=== PATIENT | male | born 1980 | race Caucasian/White ===

== ENCOUNTER 2017-01-31 12:46 | Day surgery (SDC) | payer SELFPAY ==
[~2017-01-31] VITALS: Ht 175.3 cm; Wt 77.5 kg
[2017-01-31] VITALS (16 sets, daily range): BP systolic 119–169; BP diastolic 67–100; PULSE 55–88; RESP 12–19; O2SAT 94–100
[~2017-01-31 12:46] MED LIST: CeFAZolin 2 Gm/50 mL D5W IV Premix IV ONE; Lactated Ringer's 500 ML IV SCH; OXYC1TAB24 PO
[2017-01-31] MEDS ORDERED: Dexamethasone 4 mg/mL Inj ONE (12:47)
[2017-01-31] MEDS ORDERED: Propofol 10,000 mCg/mL 20 mL Inj ONE (12:47)
[2017-01-31] MEDS ORDERED: fentaNYL-PF 50 mCg/mL 2 mL Inj ONE (12:47)
[2017-01-31] MEDS ORDERED: Ondansetron 2 mg/mL 2 mL Inj ONE (12:47)
[2017-01-31] MEDS: Lactated Ringer's 1,000 ML IV SCH ×5 (12:55→17:58)
[2017-01-31] MEDS ORDERED: CeFAZolin Inj 2 gm / 50mL D5W IV ONE (13:09)
[2017-01-31] MEDS ORDERED: ROB500 PO (13:16)
--- NOTE | 2017-01-31 13:53 | PCM.HPANE ---
Patient Data Date of Service: Jan 31, 2017 Surgeon Admitting Provider: Attending Provider:Niels Rivera DO Primary Care Physician:Shon Other Provider:Augustin Valera Anesthesia Reason for Visit Parveen Fx Of Left Ulna Ht/WT & BMI Height (Feet): 5 Height (Inches): 9 Weight (Kilograms): 77.5 Body Mass Index 25.00 Allergies Coded Allergies: No Known Allergies (Unverified , 01/31/17) Past Anesthesia History Anesthesia History: Denies:: Abnormal Airway, Anesthesia Reactions ( hallucinations with ketamine with ED), Difficult Intubation, Fam Anesthesia Reaction Diabetes History Hx Diabetes?: No MRSA MRSA: No Medications Hypertension Medication: No Home Meds Incl Beta Olya: No Reported Medications Methocarbamol Unknown Strength TabletUnknown Dose PO 01/31/17 oxyCODONE-Acetaminophen 5-325 mg 1 Each Tablet1 Tab PO Q6H PRN For Pain Ref 0 01/29/17 History History of ENT Problems?: No HEENT History: Denies:: Abnormal Airway Cataracts Difficult Intubation Dysphagia Glaucoma Hearing Problem Sinus Problem TMJ Denture Type: None Teeth Condition: Tooth Decay Missing Teeth Hx of Heart Problems?: No Cardiovascular History: Denies:: AICD Abdominal Aortic Aneurism Atrial Fibrillation Cardiac Surgery Edema Heart Murmur Hypertension Irregular Heartbeat Pacemaker Peripheral Vascular Hx of Respiratory Problem?: No Respiratory History: Denies:: Asthma COPD Emphysema Oxygen Administration Pneumonia Tuberculosis Use of C-PAP Machine Use of Inhalers / NEBS Other Resp Pertinent History: 1/2 ppd smoker Hx Neurologic Problems?: No Neurological History: Denies:: CVA Headaches Multiple Sclerosis Parkinson's Disease Seizures TIA Hx of GI Problems?: No Hx of Problems?: No Genitourinary History: Denies:: Kidney Stones Urinary Tract Infection Male Hx: Denies:: Prostate Problems Skin History: Denies:: History Skin Disorders? 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 Denies:: Blood Transfusions Hx Diabetes: No Hx Alcohol Use: YesAlcoholic Drinks Per Day: couple of drinksHx Substance Use : Yes (marijuana- inhale daily) Smoking Status: Current Every Day Smoker Have You Smoked inLast 12 mo: Yes (half pack daily) Stop/Bang Treated for Sleep Apnea?: No Do You Have a CPAP Machine?: No S-Snoring: Do You Snore Loudly: No T-Tired: feel tired, fatigued: No O-Obsered: Observed not breath: No P-Blood Pressure: treated: No B- Body Mass Index > 35 kg/m2: No A- Age over 50: No N- Neck Large Circumference: No G- Gender Male: Yes RA Total Score: 1 RA Risk Assessment: Low Risk, <3 Yes Risk Assessment Category Category 1A: Patient has history of documented sleep apnea, and HAS NOT received any narcotic, sedative or anesthesia administration during this stay. Category 1B: Patient has history of documented sleep apnea, and HAS received any narcotic , sedative or anesthesia administration during this stay Category 2: Patient has SUSPECTED Obstructive Sleep Apnea, and HAS received any narcotic , sedative or anesthesia administration during this stay. Category 3: Patient has SUSPECTED Obstructive Sleep Apnea and HAS NOT received narcotic, sedative or anesthesia administration during this stay. Category 4: Outpatient in Procedural Areas with known sleep apnea or who screen positive for High Risk via the STOP/BANG questionnaire. Exam Exam Vital Signs Vital Signs Date Time Temp Pulse Resp B/P Pulse Ox O2 Delivery O2 Flow Rate FiO2 01/31/17 13:17 36.1 55 16 119/67 97 Room Air General Appearance: Alert, Oriented X3, Cooperative, No Acute Distress HEENT/AIRWAY: MP 2 Lungs: Clear to Auscultation Heart: Regular Rate/Rhythm, No Murmurs/Rubs/Gallops Meds/Labs/Diagnostics Admission Meds Current Medications Lactated Ringer's (Lr) 1,000 ml @ 120 mls/hr Q8H20M IV Last administered on t 12:55; Start 01/31/17 at 05:00; Stop 01/31/17 at 13:19; Status DC Plan Impression Patient chart reviewed, patient interviewed and anesthestic plan with risks, benefits, and alternatives discussed, and informed consent obtained. NPO per Anesth. Guidelines: Yes ASA Physical Status: ASA2 Mod Systemic Disease Anesthetic Plan: GA Bene/Risks/Altern/Consents: Yes HP Complete Prior to Induction: Yes Kaz Dobbins DO Jan 31, 2017 13:53
[2017-01-31] MEDS ORDERED: oxyCODONE-Acetamin 5-325 mg Tablet PO PRN (14:40)
[2017-01-31] MEDS ORDERED: Lactated Ringer's 500 ML IV PRN (14:51)
[2017-01-31] MEDS ORDERED: Lactated Ringer's 1,000 ML IV SCH (14:51)
[2017-01-31] MEDS ORDERED: Ondansetron 2 mg/mL 2 mL Inj IVPUSH PRN (14:55)
[2017-01-31] MEDS ORDERED: Dexamethasone 4 mg/mL Inj IVPUSH PRN (14:55)
[2017-01-31] MEDS ORDERED: EPHEDrine Sulfate 50 mg/mL Inj IVPUSH PRN (14:55)
[2017-01-31] MEDS ORDERED: MetoCLOpramide 5 mg/mL 2 mL Inj IVPUSH PRN (14:55)
[2017-01-31] MEDS ORDERED: Phenylephrine 10,000 mCg/mL Inj IVPUSH PRN (14:55)
[2017-01-31] MEDS ORDERED: Lidocaine 1%-Epi 1:100,000 20 mL Inj INFILTRATE ONE ×2 (15:21→16:21)
[2017-01-31] MEDS: fentaNYL-PF 50 mCg/mL 2 mL Inj IVPUSH PRN ×5 (17:00→17:48)
[2017-01-31] MEDS: HYDROmorphone 1 mg/mL Inj IVPUSH PRN ×4 (17:05→17:38)
--- NOTE | 2017-01-31 17:07 | PCM.ANEP1 ---
Post Anesthesia PACU Phase 1 Assessment Date of Service: Jan 31, 2017 Vital Signs Vital Signs Date Time Temp Pulse Resp B/P Pulse Ox O2 Delivery O2 Flow Rate FiO2 01/31/17 16:58 36.4 87 12 147/84 95 Room Air 01/31/17 13:17 36.1 55 16 119/67 97 Room Air Anesthetic Administered: GA Level of Alertness: Awake, talking Pain: Yes Nausea or Vomiting: No CV Function & Hydration Stable: Yes Airway Device: Oxygen Delivery: Room Air Lungs: Clear to Auscultation PACU Phase 2 Assessment Complications: No Follow up Care: N/A Patient Instructions Provided: N/A Kaz Dobbins DO Jan 31, 2017 17:07
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
== END 2017-01-31 23:59 | disposition home or self-care (01) ==
LOC: SAS 12:46
PROVIDERS: ATTEND Orthopaedic Surgery
DX: S52.272A Monteggia's fracture of left ulna, initial encounter for closed fracture (principal); S53.005A Unspecified dislocation of left radial head, initial encounter; V86.69XA Passenger of other special all-terrain or other off-road motor vehicle injured in nontraffic accident, initial encounter; Y93.I9 Activity, other involving external motion; F17.210 Nicotine dependence, cigarettes, uncomplicated
CPT/HCPCS: 24655; 24685; 76001; J0690; J1100; J1170; J2250; J2405; J3010; J7120